=== PATIENT | female | born 1980 | race Caucasian/White ===

== ENCOUNTER 2022-06-22 19:58 | Emergency (ER) | payer SELFPAY ==
[~2022-06-22] VITALS: Ht 162.6 cm; Wt 95.3 kg
[2022-06-22 20:06] VITALS: BP 123/71
[2022-06-22] MEDS ORDERED: MORPHINE SULFATE 4 MG/ML SYR IM ONE (20:20)
--- NOTE | 2022-06-22 20:20 | NUR ---
Dr. Scherer examining patient.
[2022-06-22] MEDS ORDERED: CYCLOBENZAPRINE 10 MG TAB PO ONE (20:25)
--- NOTE | 2022-06-22 20:26 | NUR ---
PT TAKEN TO RADIOLOGY
--- NOTE | 2022-06-22 20:36 | NUR ---
PT RETURN FROM XRAY TO ER BED 2
[2022-06-22] MEDS ORDERED: LIDO1ADH47 TP (20:55)
[2022-06-22] MEDS ORDERED: ACET-8905 PO (20:55)
[2022-06-22] MEDS ORDERED: IBUP-2213 PO (20:55)
[2022-06-22 21:48] VITALS: BP 112/78
--- NOTE | 2022-06-22 21:48 | NUR ---
Patient discharged with v/s stable. Written and verbal after care instructions given and explained. Patient alert, oriented and verbalized understanding of instructions. Wheel Chair Assisted with to car. All questions addressed prior to discharge. ID band removed. Patient advised to follow up with PMD. Rx of Ibuprofen, Hutto and Lidocaine given. Patient educated on indication of medication including possible reaction and side effects. Opportunity to ask questions provided and answered.
== END 2022-06-22 21:48 | disposition home or self-care (01) ==
LOC: MED 19:58
DX: S39.012A Strain of muscle, fascia and tendon of lower back, initial encounter (principal); X58.XXXA Exposure to other specified factors, initial encounter; Y93.89 Activity, other specified; Y92.89 Other specified places as the place of occurrence of the external cause; Y99.8 Other external cause status
CPT/HCPCS: 72100; 96372; 99283; J2270